=== PATIENT | female | born 1990 | race Caucasian/White ===

== ENCOUNTER 2018-04-10 05:36 | Inpatient (IN) | payer MEDICAID, OTHER ==
[~2018-04-10] VITALS: Ht 162.6 cm; Wt 65.3 kg
[2018-04-10] MEDS ORDERED: LACTATED RINGERS 1,000 ML IV SCH (05:59)
[2018-04-10] MEDS ORDERED: CARBOPROST TROMETHAMINE 250 MCG/ML AMPUL IM PRN (06:00)
[2018-04-10] MEDS ORDERED: PENICILLIN G POTASSIUM 5 MMU in DEXT 5% WATER 100 ML IV SCH (06:00)
[2018-04-10] MEDS ORDERED: LIDOCAINE HCL 1% 20ML VIAL (Pyxis) INJ INFIL SCH (06:00)
[2018-04-10] MEDS ORDERED: NALOXONE HCL 0.4 MG/ML 1ML VIAL IM PRN (06:00)
[2018-04-10] MEDS ORDERED: METHYLERGONOVINE MALEATE 0.2 MG/ML IM PRN (06:00)
[2018-04-10] MEDS: DEXT 5%/LR + PITOCIN 20UNITS/L 1,000 ML IV SCH ×2 (06:25→07:10)
[2018-04-10] MEDS ORDERED: DEXT 5%/LR + PITOCIN 20UNITS/L 1,000 ML IV SCH (07:17)
[2018-04-10] MEDS ORDERED: ACETAMINOPHEN WITH CODEINE 300/30MG TABLET PO PRN ×2 (07:30)
[2018-04-10] MEDS ORDERED: DIPHENHYDRAMINE 25MG CAPSULE PO PRN (07:30)
[2018-04-10] MEDS ORDERED: BENZOCAINE/LANOLIN/ALOE VERA SPRAY TOP PRN (07:30)
[2018-04-10] MEDS ORDERED: LANOLIN OINT 0.25 GM TUBE TOP PRN (07:30)
[2018-04-10] MEDS ORDERED: GLYCERIN/WITCH HAZEL LEAF MEDICATED PAD TOP PRN (07:30)
[2018-04-10 07:45] LABS: BASOPHILS % 0.2 % (0.0-2.0); EOSINOPHILS % 0.7 % (0.0-5.0); HEMATOCRIT. 38.1 % (36.0-48.0); HEMOGLOBIN. 12.8 g/dL (12.0-16.0); LYMPHOCYTES % 33.1 % (20.0-50.0); MEAN CORPUSCULAR HEMOGLOBIN 30.4 pg (28.0-32.0); MEAN CORPUSCULAR VOLUME 90.2 fL (81.0-99.0); MEAN PLATELET VOLUME 10.4 fl (7.4-10.4); MONOCYTES % 6.3 % (2.0-8.0); NEUTROPHILS % 59.7 % (40.0-76.0); PLATELET 190 x1000/uL (130-400); RED BLOOD CELL COUNT 4.22 mill/uL (4.2-5.4); RED CELL DISTRIBUTION WIDTH 13.3 % (11.6-14.6)
[2018-04-10 07:53] LABS: INR 0.9; PARTIAL THROMBOPLASTIN TIME 26.1 sec (23.4-31.0)
[2018-04-10 07:59] LABS: CLARITY URINE CLOUDY (CLEAR); COLOR URINE YELLOW (YELLOW); KETONES URINE NEGATIVE (NEGATIVE); LEUKOCYTE ESTERASE URINE 1+ (NEGATIVE); NITRITE URINE NEGATIVE (NEGATIVE); OCCULT BLOOD URINE NEGATIVE (NEGATIVE); PH URINE 6.5 (4.5-8.0); PROTEIN URINE NEGATIVE (NEGATIVE); SPECIFIC GRAVITY URINE 1.017 (1.005-1.030); UROBILINOGEN URINE 0.2 E.U./dL (0.2-1.0)
[2018-04-10 08:25] LABS: HEPATITIS B SURFACE ANTIGEN NEGATIVE
[2018-04-10 08:45] LABS: *AMPHETAMINES SCREEN URINE NEGATIVE (NEGATIVE); *BARBITURATES SCREEN URINE NEGATIVE (NEGATIVE); *BENZODIAZEPINES SCREEN URINE NEGATIVE (NEGATIVE)
[2018-04-10 08:46] LABS: *COCAINE SCREEN URINE NEGATIVE (NEGATIVE); OPIATES URINE SCREEN NEGATIVE (NEGATIVE); PHENCYCLIDINE URINE SCREEN NEGATIVE (NEGATIVE)
[2018-04-10 08:47] LABS: CANNABINOID URINE SCREEN NEGATIVE (NEGATIVE); METHADONE URINE SCREEN NEGATIVE (NEGATIVE)
[2018-04-10 09:00] VITALS: BP 98/60
[2018-04-10 10:00] VITALS: BP 93/56
[2018-04-10] MEDS ORDERED: PENICILLIN G POTASSIUM 2.5 MMU in DEXTROSE 5% WATER 50 ML IV SCH (10:00)
[2018-04-10] MEDS: SIMETHICONE 80MG TABLET CHEW PO SCH ×2 (10:17→13:00)
[2018-04-10] MEDS: PRENATAL VIT/FE FUMARATE/FA TABLET PO SCH (10:17)
[2018-04-10] MEDS: IBUPROFEN 400MG TABLET PO PRN (10:21)
[2018-04-10 15:10] VITALS: BP 93/60
[2018-04-10 20:00] VITALS: BP 100/63
[2018-04-11] MEDS: IBUPROFEN 400MG TABLET PO PRN ×2 (00:12→15:44)
[2018-04-11 04:00] VITALS: BP 92/58
[2018-04-11 07:33] VITALS: BP 90/58
[2018-04-11 07:35] LABS: BASOPHILS % 0.2 % (0.0-2.0); EOSINOPHILS % 0.8 % (0.0-5.0); HEMATOCRIT. 34.2 % (36.0-48.0); HEMOGLOBIN. 11.7 g/dL (12.0-16.0); MEAN CORPUSCULAR HEMOGLOBIN 30.9 pg (28.0-32.0); MEAN CORPUSCULAR VOLUME 90.6 fL (81.0-99.0); MONOCYTES % 6.7 % (2.0-8.0); NEUTROPHILS % 69.3 % (40.0-76.0); PLATELET 163 x1000/uL (130-400); RED BLOOD CELL COUNT 3.78 mill/uL (4.2-5.4); RED CELL DISTRIBUTION WIDTH 13.4 % (11.6-14.6)
[2018-04-11] MEDS: SIMETHICONE 80MG TABLET CHEW PO SCH ×3 (08:17→17:30)
[2018-04-11] MEDS: PRENATAL VIT/FE FUMARATE/FA TABLET PO SCH (08:17)
[2018-04-11 16:02] VITALS: BP 97/50
[2018-04-11 20:00] VITALS: BP 91/57
[2018-04-12 04:00] VITALS: BP 89/62
[2018-04-12] MEDS: IBUPROFEN 400MG TABLET PO PRN (05:03)
[2018-04-12 08:00] VITALS: BP 94/58
[2018-04-12] MEDS ORDERED: TETANUS, DIPHTHERIA, PERTUSSIS VAC/PF 0.5ML (>7YR OLD) IM ONE (08:00)
[2018-04-12] MEDS: PRENATAL VIT/FE FUMARATE/FA TABLET PO SCH (08:37)
[2018-04-12] MEDS: SIMETHICONE 80MG TABLET CHEW PO SCH (08:37)
== END 2018-04-12 11:30 | disposition home or self-care (01) | DRG 560 ==
LOC: 8 EST LDRP 05:36 → 8EST 09:00
PROVIDERS: ADMIT Obstetrics & Gynecology; ATTEND Obstetrics & Gynecology
PROC: 10D07Z6 Extraction of Products of Conception, Vacuum, Via Natural or Artificial Opening (ICD-10-PCS; principal; 2018-04-11)
PROC: 0KQM0ZZ Repair Perineum Muscle, Open Approach (ICD-10-PCS; 2018-04-11)
DX: O48.0 Post-term pregnancy (principal); O70.1 Second degree perineal laceration during delivery; Z37.0 Single live birth; Z3A.40 40 weeks gestation of pregnancy
CPT/HCPCS: 36415; 80305; 86592; 86703; 86762; 86850; 86900; 87340; 90715; 99281; J2540; J2590; J3490; J7060; J7120